=== PATIENT | male | born 1975 | race African-American/Black ===

== ENCOUNTER 2024-11-16 18:55 | Emergency (ER) | payer MEDICARE ==
[~2024-11-16] VITALS: Ht 157.5 cm; Wt 78.5 kg
[2024-11-16 19:19] VITALS: BP 139/74
[2024-11-16 19:34] VITALS: BP 131/96
[2024-11-16 19:42] LABS: BASO% 0.7 % (0-3); EOS% 5.3 % (0-8); HEMATOCRIT 24.4 % (39.0-50.0); HEMOGLOBIN 7.6 g/dl (14.0-18.0); IMMATURE GRANULOCYTES 0.2 % (0.0-5.0); LYMPH% 16.7 % (15-41); MEAN CELL VOLUME 97.2 fL CALC (80.0-100.0); MEAN CORPUSCULAR HGB 30.3 pG CALC (26.0-32.0); MEAN CORPUSCULAR HGB CONC 31.1 g/dL CAL (32.0-36.0); NEUT# 2.6 thou/uL (1.82-7.42); NEUT% 63.1 % (42-76); RED BLOOD COUNT 2.51 mill/uL (4.70-6.10); RED CELL DISTRI WIDTH 15.5 % (11.5-15.5)
[2024-11-16 19:53] LABS: ALBUMIN 4.2 g/dL (3.2-5.0); ALKALINE PHOSPHATASE 88 u/l (38-126); ANION GAP 18 (6-22 (CALC)); BILIRUBIN, TOTAL 0.4 mg/dL (0.2-1.3); BUN 67 mg/dL (9-20); BUN/CREATININE RATIO 6 (12-20 (CALC)); CARBON DIOXIDE 25 mmol/l (22-30); CHLORIDE 100 mmol/l (95-108); ESTIMATED GFR 5 ML/MIN (>=90 (CALC)); MAGNESIUM 1.8 mg/dL (1.6-2.3); POTASSIUM 4.8 mmol/l (3.5-5.1); SGOT/AST 34 u/l (17-59); SODIUM 138 mmol/l (137-146); TOTAL PROTEIN 7.8 g/dL (6.3-8.2)
[2024-11-16 19:55] LABS: CREATININE 10.5 mg/dL (0.7-1.3)
[2024-11-16 19:56] LABS: ETHYL ALCOHOL < 10 mg/dl (0-30)
[2024-11-16 20:01] VITALS: BP 121/65
[2024-11-16 21:00] VITALS: BP 119/66
[2024-11-16 21:15] VITALS: BP 119/66
== END 2024-11-16 21:15 | disposition short-term general hospital (02) ==
LOC: ED 18:55
PROVIDERS: Family Medicine
DX: R45.851 Suicidal ideations (principal); F32.A Depression, unspecified; I12.0 Hypertensive chronic kidney disease with stage 5 chronic kidney disease or end stage renal disease; E11.22 Type 2 diabetes mellitus with diabetic chronic kidney disease; N18.6 End stage renal disease; D63.1 Anemia in chronic kidney disease; Z99.2 Dependence on renal dialysis; Z20.822 Contact with and (suspected) exposure to COVID-19; Z91.51 Personal history of suicidal behavior